=== PATIENT | female | born 1935 | race Caucasian/White ===

== ENCOUNTER 2018-11-06 10:28 | Outpatient (CLI) | payer MEDICARE, BC ==
--- NOTE | 2018-11-06 14:17 | CT ---
CT OF THE ABDOMEN AND PELVIS WITHOUT AND WITH CONTRAST: Date: 11/06/18 COMPARISON: None. HISTORY: Congenital blockage of the right kidney. TECHNIQUE: Multiple contiguous axial images were obtained in a CT of the abdomen and pelvis without and with IV contrast. Coronal reformats were performed. Postcontrast images were obtained in nephrographic and ex cretory phases. FINDINGS: There is elevation of the right hemidiaphragm. There is a large right renal pelvis with minimal dilat ation of the calices. No calcifications are seen in either kidney. No delay in right nephrogram is se en compared to the left, and excretion of contrast is seen into the renal pelvis on the excretory pha se images. The ureters are unremarkable without focal abnormality. No abnormality of the urinary blad ryan is seen. The patient is status post cholecystectomy. The liver, adrenal glands, spleen, and pancreas are unrem arkable. No free air, free fluid, or stranding changes are seen in the abdomen or pelvis. The large and small bowel are unremarkable. There is a cystic structure in the left adnexa measuring 2.6 cm in size, which likely represents an ovarian cyst/follicle. The appendix is normal. No abdomina l or pelvic lymphadenopathy are seen. Atherosclerotic calcifications are seen in the aorta. Degenerative changes and postsurgical changes are seen in the spine. There is scoliosis of the spine. The visualized inferior thorax and abdominal wall soft tissues are unremarkable. IMPRESSION: 1. 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 However, there is no signifi cant clinical obstruction as no delay in the nephrogram is seen on the right compared to the left. 2. Cystic structure in the left adnexa likely represents an ovarian cyst/follicle. POS: CHUY
== END 2018-11-06 10:29 | disposition home or self-care (01) ==
LOC: CT 10:28
PROVIDERS: ATTEND Urology
DX: Q62.11 Congenital occlusion of ureteropelvic junction (principal); N28.89 Other specified disorders of kidney and ureter
CPT/HCPCS: 74178

== ENCOUNTER 2018-12-25 13:09 | Outpatient (CLI) | payer MEDICARE, BC ==
--- NOTE | 2018-12-25 15:24 | RAD ---
TWO VIEWS OF THE CHEST: COMPARISON: CT abdomen/pelvis 11/06/2018. HISTORY: Dyspnea. FINDINGS: Two views of the chest show a normal-size cardiomediastinal silhouette. There is a large hiatal elena ia. There is elevation of the right hemidiaphragm. There is no evidence of consolidation, mass, or pleural effusion. Degenerative changes and hardware are seen in the spine. IMPRESSION: No evidence of acute cardiopulmonary disease. POS: C
== END 2018-12-25 13:10 | disposition home or self-care (01) ==
LOC: RAD 13:09
PROVIDERS: ATTEND Internal Medicine Critical Care Medicine
DX: R06.00 Dyspnea, unspecified (principal)
CPT/HCPCS: 71046; 80053; 85025

== ENCOUNTER 2018-12-25 14:48 | Outpatient (CLI) | payer MEDICARE, BC ==
[2018-12-25 15:42] LABS: #Basophils 0.1 thou/uL (0.0-0.2); #Eosinphils 0.2 thou/uL (0.0-0.7); #Monocytes 0.6 thou/uL (0.11-0.59); #Neutrophils 7.1 thou/uL (1.40-6.50); %Basophils 0.6 % (0.0-1.0); %Eosinophils 1.9 % (0.0-10.0); %Lymphocytes 20.3 % (21.0-51.0); %Monocytes 6.3 % (0.0-10.0); %Neutrophils 70.9 % (42.0-75.0); Hemoglobin 12.9 g/dL (12.0-16.0); Mean Corpuscular HGB CONC 34.3 g/dL (32.0-36.0); Mean Corpuscular Hemoglobin 30.6 pg (27.0-31.0); Mean Corpuscular Volume 89.1 fL (78.0-98.0); Mean Platelet Volume 7.6 fL (7.4-10.4); Platelet Count 201 thou/uL (130-400); RBC Distribution Width 12.1 % (11.5-14.5); Red Blood Cell (RBC) Count 4.23 mill/uL (4.20-5.40)
[2018-12-25 16:05] LABS: ALT (SGPT) 15 U/L (8-55); AST (SGOT) 20 U/L (5-34); Albumin 4.5 g/dL (3.4-4.8); Alkaline Phosphatase 79 U/L (40-110); Anion Gap 14 mmol/L (10-20); BUN (Urea Nitrogen) 25 mg/dL (9.8-20.1); Bilirubin, Total 0.5 mg/dL (0.2-1.2); Calc. Creatinine Clearance 0 mL/min (70-130); Calcium 9.9 mg/dL (7.8-10.44); Carbon Dioxide 26 mmol/L (23-31); Chloride 103 mmol/L (98-107); Estimated GFR-MDRD 64; Globulin 2.5 g/dL (2.4-3.5); Glucose 131 mg/dL (83-110); Potassium 4.7 mmol/L (3.5-5.1); Sodium 138 mmol/L (136-145)
== END 2018-12-25 14:49 | disposition home or self-care (01) ==
LOC: LABBT 14:48
PROVIDERS: ATTEND Internal Medicine Cardiovascular Disease
DX: Z01.812 Encounter for preprocedural laboratory examination (principal); R94.39 Abnormal result of other cardiovascular function study
CPT/HCPCS: 80053; 85025

== ENCOUNTER → 2018-12-29 | Day surgery (SDC) | payer MEDICARE, BC ==
[2018-12-25 14:53] VITALS: BMI 31.1
[~2018-12-29] MED LIST: Atropine Sulfate 1 mg/10 ml Syringe ONE; Fentanyl 100 MCG/2 ML VIAL ONE; Fentanyl 100 MCG/2 ML VIAL SLOW IVP SCH; Iopamidol 370 76% 100 ML VIAL ONE; Iopamidol 370 76% 50 ML VIAL FS ONE; Lidocaine 1% (PF) 30 ML VIAL ONE; Metoprolol Tartrate 5 MG/5 ML VIAL ONE; Nitroglycerin 2% Ointment 1 INCH/1 GM Packet ONE
== END ==
LOC: CCL 06:09
PROVIDERS: ATTEND Internal Medicine Cardiovascular Disease
PROC: 4A023N7 Measurement of Cardiac Sampling and Pressure, Left Heart, Percutaneous Approach (ICD-10-PCS; principal; 2018-12-29)
PROC: B2111ZZ Fluoroscopy of Multiple Coronary Arteries using Low Osmolar Contrast (ICD-10-PCS; 2018-12-29)
DX: I25.10 Atherosclerotic heart disease of native coronary artery without angina pectoris (principal); I77.72 Dissection of iliac artery; R94.39 Abnormal result of other cardiovascular function study; I35.0 Nonrheumatic aortic (valve) stenosis; I11.9 Hypertensive heart disease without heart failure; I50.32 Chronic diastolic (congestive) heart failure; I34.0 Nonrheumatic mitral (valve) insufficiency; E78.00 Pure hypercholesterolemia, unspecified; K21.9 Gastro-esophageal reflux disease without esophagitis; Z79.82 Long term (current) use of aspirin; Z79.899 Other long term (current) drug therapy; Z88.8 Allergy status to other drugs, medicaments and biological substances
CPT/HCPCS: 75630; 76942; 93458; C1769; J0461; J1644; J2001; J3010; Q9967